=== PATIENT | male | born 1935 | race Caucasian/White ===

== ENCOUNTER → 2021-05-16 | Outpatient (CLI) | payer SELFPAY | END | disposition home or self-care (01) | LOC: LAB SHORT 11:01 | DX: C44.329 Squamous cell carcinoma of skin of other parts of face (principal); L81.4 Other melanin hyperpigmentation | CPT/HCPCS: 88305 ==

== ENCOUNTER → 2021-06-19 | Outpatient (CLI) | payer SELFPAY | END | disposition home or self-care (01) | LOC: LAB SHORT 15:13 | DX: M25.571 Pain in right ankle and joints of right foot (principal) | CPT/HCPCS: 84550 ==

== ENCOUNTER → 2021-11-12 | Outpatient (CLI) | payer MEDICARE, OTHER | END | disposition home or self-care (01) | LOC: LAB SHORT 16:18 → LAB 16:18 | DX: N39.0 Urinary tract infection, site not specified (principal) | CPT/HCPCS: 87077; 87086; 87186 ==

== ENCOUNTER → 2021-11-29 | Outpatient (CLI) | payer MEDICARE, OTHER | END | disposition home or self-care (01) | LOC: LAB 13:29 → LAB SHORT 13:29 | DX: N39.0 Urinary tract infection, site not specified (principal) | CPT/HCPCS: 87086 ==

== ENCOUNTER 2022-03-27 11:30 | Emergency (ER) | payer MEDICARE, OTHER ==
[~2022-03-27] VITALS: Ht 177.8 cm; Wt 81.7 kg
[2022-03-27] MEDS ORDERED: AMLODIPINE BESYL5 MG PO (12:34)
[2022-03-27] MEDS ORDERED: TELMISARTAN80 MG PO (12:35)
[2022-03-27] MEDS ORDERED: METOPROLOL TART25 MG PO (12:35)
[2022-03-27] MEDS ORDERED: ATOR40TA PO (12:36)
[2022-03-27] MEDS ORDERED: Aspir 8181 MG PO (12:38)
--- NOTE | 2022-03-27 16:36 | NUR ---
Biotronik Dual pacemaker check done per ED request (no Biotronik scanner in ED). 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 RV lead Impedance good (585 ohms/ 0.5V @ 0.4 ms). Will check in pacer clinic in 6 months, report routed in [facility] to Dr Gregg, report given to ED3 RN.
== END 2022-03-27 16:59 | disposition home or self-care (01) ==
LOC: ER 11:30
DX: R07.89 Other chest pain (principal); Z45.010 Encounter for checking and testing of cardiac pacemaker pulse generator [battery]; Z79.899 Other long term (current) drug therapy; Z79.82 Long term (current) use of aspirin
CPT/HCPCS: 71045; 93005; 93010; 93280; 99284-25

== ENCOUNTER → 2022-09-23 | Outpatient (CLI) | payer MEDICARE, OTHER ==
[~2022-09-23] MED LIST: AMLODIPINE BESYL5 MG PO; ATOR40TA PO; Aspir 8181 MG PO; METOPROLOL TART25 MG PO; TELMISARTAN80 MG PO
[2022-09-23 23:11] LABS: Microalbumin, Urine Quant. 11.2 mg/L (0.000-20.000)
== END | disposition home or self-care (01) ==
LOC: LAB SHORT 08:30 → LAB 08:30
PROVIDERS: Internal Medicine Nephrology
DX: N18.30 Chronic kidney disease, stage 3 unspecified (principal); D63.1 Anemia in chronic kidney disease; N25.81 Secondary hyperparathyroidism of renal origin; E78.00 Pure hypercholesterolemia, unspecified; E55.9 Vitamin D deficiency, unspecified; D50.9 Iron deficiency anemia, unspecified; D51.8 Other vitamin B12 deficiency anemias; D52.8 Other folate deficiency anemias; R76.9 Abnormal immunological finding in serum, unspecified; R94.5 Abnormal results of liver function studies; R94.6 Abnormal results of thyroid function studies
CPT/HCPCS: 82043; 82570; 84156

== ENCOUNTER 2023-02-10 13:29 | Emergency (ER) | payer MEDICARE, OTHER ==
[~2023-02-10] VITALS: Ht 177.8 cm; Wt 81.7 kg
[2023-02-10 13:33] VITALS: BP 129/65
[2023-02-10 14:36] LABS: BASOPHILS ABSOLUTE AUTO 0.03 K/mm3 (0.00-0.23); BASOPHILS PERCENT AUTO 0 % (0-2); EOSINOPHILS ABSOLUTE AUTO 0.11 K/mm3 (0.00-0.68); EOSINOPHILS PERCENT AUTO 1 % (0-6); Hematocrit 38.5 % (37.0-53.0); Hemoglobin 12.8 g/dL (13.5-17.5); IMMATURE GRAN ABSOLUTE AUTO 0.05 K/mm3 (0.00-0.10); IMMATURE GRAN PERCENT AUTO 1 % (0-1); LYMPHOCYTES PERCENT AUTO 8 % (21-46); MONOCYTES ABSOLUTE AUTO 0.71 K/mm3 (0.16-1.47); MONOCYTES PERCENT AUTO 7 % (4-13); Mean Corpuscular HGB 30.5 pg (26.0-34.0); Mean Corpuscular HGB Conc 33.2 g/dL (31.5-36.5); Mean Corpuscular Volume 92 fL (80-100); NEUTROPHILS PERCENT AUTO 84 % (41-73); Platelet Count 164 K/mm3 (150-400); RDW Coefficient Variation 12.7 % (11.7-14.2); Red Blood Cell Count 4.19 M/mm3 (4.30-5.90)
[2023-02-10 14:51] LABS: Albumin/Globulin Ratio 0.8 (0.8-1.8); Bilirubin, Total 0.7 mg/dL (0.1-1.0); Bun/Creatinine Ratio 12.8 (12.0-20.0); Calcium, Blood 8.4 mg/dL (8.5-10.1); Creatinine, Blood 2.03 mg/dL (0.60-1.20); Globulin, Blood 3.7 g/dL (2.2-4.0); Total Protein, Blood 6.7 g/dL (6.4-8.2)
[2023-02-10] MEDS ORDERED: ALBU90OI INH (15:57)
== END 2023-02-10 16:05 | disposition home or self-care (01) ==
LOC: ER 13:29
PROVIDERS: Student in an Organized Health Care Education/Training Program
DX: J06.9 Acute upper respiratory infection, unspecified (principal); Z95.0 Presence of cardiac pacemaker; Z79.899 Other long term (current) drug therapy; Z79.82 Long term (current) use of aspirin
CPT/HCPCS: 71046; 80053; 85025; 99283-25

== ENCOUNTER → 2023-12-01 | Outpatient (CLI) | payer MEDICARE, OTHER ==
[~2023-12-01] MED LIST changes: +ALBU90OI INH; +CALC.25 PO; +ELIQUIS2.5 MG PO; +ENTRESTO 97 MG1 EACH PO
[2023-12-01 16:27] LABS: Adenovirus F 40/41 Not Detected (NOT DETECT); Astrovirus Not Detected (NOT DETECT); Campylobacter Sp Not Detected (NOT DETECT); Cryptosporidium Not Detected (NOT DETECT); Cyclospora Cayetanensis Not Detected (NOT DETECT); E. Coli O157 Not Detected (NOT DETECT); Entamoeba Histolytica Not Detected (NOT DETECT); Enteroaggregative E. coli-EAEC Not Detected (NOT DETECT); Enteropathogenic E. coli-EPEC Not Detected (NOT DETECT); Enterotoxigenic E. coli-ETEC Not Detected (NOT DETECT); Giardia Lamblia Not Detected (NOT DETECT); Norovirus GI/GII Not Detected (NOT DETECT); Plesiomonas Shigelloides Not Detected (NOT DETECT); Rotavirus A Not Detected (NOT DETECT); Salmonella Sp Not Detected (NOT DETECT); Sapovirus Not Detected (NOT DETECT); Shiga Toxin-prod E. coli-STEC Not Detected (NOT DETECT); Shigella/Enteroin E. coli-EIEC Not Detected (NOT DETECT); Vibrio Cholerae Not Detected (NOT DETECT); Vibrio Sp Not Detected (NOT DETECT); Yersinia Enterocolitica Not Detected (NOT DETECT)
== END | disposition home or self-care (01) ==
LOC: LAB 12:49 → LAB SHORT 12:49
PROVIDERS: Emergency Medicine
DX: R19.7 Diarrhea, unspecified (principal)
CPT/HCPCS: 87507

== ENCOUNTER → 2024-06-16 | Outpatient (CLI) | payer MEDICARE, OTHER ==
[2024-06-16 12:00] LABS: BASOPHILS ABSOLUTE AUTO 0.07 K/mm3 (0.00-0.23); BASOPHILS PERCENT AUTO 1 % (0-2); EOSINOPHILS ABSOLUTE AUTO 0.39 K/mm3 (0.00-0.68); EOSINOPHILS PERCENT AUTO 3 % (0-6); Hematocrit 41.8 % (37.0-53.0); Hemoglobin 13.8 g/dL (13.5-17.5); IMMATURE GRAN ABSOLUTE AUTO 0.04 K/mm3 (0.00-0.10); IMMATURE GRAN PERCENT AUTO 0 % (0-1); LYMPHOCYTES ABSOLUTE AUTO 1.72 K/mm3 (0.84-5.20); LYMPHOCYTES PERCENT AUTO 15 % (21-46); MONOCYTES ABSOLUTE AUTO 0.73 K/mm3 (0.16-1.47); MONOCYTES PERCENT AUTO 6 % (4-13); Mean Corpuscular HGB 30.9 pg (26.0-34.0); Mean Corpuscular Volume 94 fL (80-100); Mean Platelet Volume 10.5 fL (9.1-12.4); NEUTROPHILS ABSOLUTE AUTO 8.52 K/mm3 (1.96-9.15); NEUTROPHILS PERCENT AUTO 74 % (41-73); Platelet Count 285 K/mm3 (150-400); RDW Coefficient Variation 12.8 % (11.7-14.2); RDW Standard Deviation 43.9 fL (35.1-46.3); Red Blood Cell Count 4.47 M/mm3 (4.30-5.90); White Blood Cell Count 11.47 K/mm3 (4.00-11.30)
[2024-06-16 12:07] LABS: Bun/Creatinine Ratio 10.6 (12.0-20.0); Calcium, Blood 9.1 mg/dL (8.5-10.1); Creatinine, Blood 1.99 mg/dL (0.60-1.20); Potassium, Blood 3.5 mmol/L (3.5-5.5)
== END | disposition home or self-care (01) ==
LOC: LAB 11:57 → LAB SHORT 11:57
PROVIDERS: Physician Assistant
DX: R10.84 Generalized abdominal pain (principal)
CPT/HCPCS: 80048; 85025

== ENCOUNTER 2024-11-11 09:37 | Day surgery (SDC) | payer MEDICARE, OTHER ==
[~2024-11-11] VITALS: Ht 180.3 cm; Wt 84.4 kg
[2024-11-11] MEDS ORDERED: Amlodipine Bes2.5 MG PO (10:26)
[2024-11-11] MEDS ORDERED: METO50ER PO (10:27)
[2024-11-11] MEDS ORDERED: ATOR40TA PO (10:27)
[2024-11-11 10:40] VITALS: BP 147/80
[2024-11-11 10:45] VITALS: BP 142/90
[2024-11-11] MEDS ORDERED: CeFAZolin Sodium 1000 mg Vial ONE ×2 (10:55→12:36)
[2024-11-11] MEDS ORDERED: Bupivacaine 0.5% HCl 5 MG/ML 30MLVIAL ONE ×2 (10:55→12:35)
[2024-11-11] MEDS ORDERED: Heparin Sodium 1000 Units/ML 10ML MDV ONE ×2 (10:56→12:36)
[2024-11-11] MEDS ORDERED: NS 1,000 ML IV ONE ×3 (10:56→12:36)
[2024-11-11] MEDS ORDERED: CeFAZolin Sodium 2,000 MG VIAL ONE (12:14)
[2024-11-11] MEDS ORDERED: NS 50 ML IV ONE (12:14)
[2024-11-11] MEDS ORDERED: FentaNYL Citrate 50 MCG/ML 2 ML Injection ONE (13:28)
[2024-11-11] MEDS ORDERED: Midazolam HCl 1MG / ML 2ML Vial ONE (13:28)
[2024-11-11 15:00] VITALS: BP 129/65
[2024-11-11 15:15] VITALS: BP 142/77
--- NOTE | 2024-11-11 15:38 | NUR ---
PATIENT RETURNED EARLIER FROM DIRECTOR OF CONSULTING SERVICES, SITE INTACT AND CLEAN, DRESSING IN PLACE, DISCUSSED PLAN/NEED TO RETURN, MONITOR SITE; REMAINED STABLE ON MONITOR, VS STABLE AND DISCUSSED DISCHARGE INSTRUCTIONS, PROVIDER INSTRUCTIONS, MEDICATION LIST, PACEMAKER BATTERY CHANGE AFTER CARE INSTRUCTIONS AND FOLLOW UP APPOINTMENTS. PATIENT AND FAMILY DENIED QUESTIONS/CONCERNS, GIVEN COPIES, IV REMOVED. BELONGINGS GATHERED, PATIENT DRESSED, TAKEN BY WHEELCHAIR TO ENTRANCE, LEFT IN CARE OF DAUGHTER AT PRESENT TIME, 1540.
== END 2024-11-11 15:40 | disposition home or self-care (01) ==
LOC: MHTC 09:37
DX: Z45.010 Encounter for checking and testing of cardiac pacemaker pulse generator [battery] (principal); I49.5 Sick sinus syndrome; I48.0 Paroxysmal atrial fibrillation; I13.0 Hypertensive heart and chronic kidney disease with heart failure and stage 1 through stage 4 chronic kidney disease, or unspecified chronic kidney disease; I50.20 Unspecified systolic (congestive) heart failure; N18.4 Chronic kidney disease, stage 4 (severe); E78.5 Hyperlipidemia, unspecified; I25.2 Old myocardial infarction; Z79.899 Other long term (current) drug therapy; Z79.82 Long term (current) use of aspirin; Z79.01 Long term (current) use of anticoagulants; Z87.891 Personal history of nicotine dependence
CPT/HCPCS: 33228; 99152; 99153; C1785; J0690; J1644; J2250; J3010; J7030; J7040